=== PATIENT | male | born 1985 | race Caucasian/White ===

== ENCOUNTER 2018-10-12 07:32 | Emergency (ER) | payer SELFPAY ==
[~2018-10-12] VITALS: Ht 180.3 cm; Wt 72.6 kg
[2018-10-12 07:39] VITALS: BP 143/86
== END 2018-10-12 08:44 | disposition home or self-care (01) ==
LOC: ER 07:32
DX: J03.90 Acute tonsillitis, unspecified (principal); F17.210 Nicotine dependence, cigarettes, uncomplicated; F12.10 Cannabis abuse, uncomplicated; F15.10 Other stimulant abuse, uncomplicated; Z59.0 Homelessness

== ENCOUNTER 2018-12-23 08:59 | Emergency (ER) | payer SELFPAY ==
[~2018-12-23] VITALS: Ht 180.3 cm; Wt 57.9 kg
[2018-12-23 09:34] VITALS: BP 124/59
== END 2018-12-23 10:24 | disposition home or self-care (01) ==
LOC: ER 08:59
DX: L84 Corns and callosities (principal); F17.210 Nicotine dependence, cigarettes, uncomplicated; F12.10 Cannabis abuse, uncomplicated; F15.10 Other stimulant abuse, uncomplicated

== ENCOUNTER 2018-12-31 02:16 | Emergency (ER) | payer SELFPAY ==
[~2018-12-31] VITALS: Ht 180.3 cm; Wt 74.4 kg
[2018-12-31] MEDS ORDERED: cefTRIAXone SOD 1,000 MG VL IM ONE (04:30)
[2018-12-31 04:37] VITALS: BP 128/71
== END 2018-12-31 05:24 | disposition home or self-care (01) ==
LOC: ER 02:18
DX: L84 Corns and callosities (principal); Z76.0 Encounter for issue of repeat prescription; F17.210 Nicotine dependence, cigarettes, uncomplicated; F12.10 Cannabis abuse, uncomplicated; F15.10 Other stimulant abuse, uncomplicated
CPT/HCPCS: 96372; 99283; J0696

== ENCOUNTER 2019-01-14 00:32 | Emergency (ER) | payer SELFPAY ==
[~2019-01-14] VITALS: Ht 180.3 cm; Wt 74.8 kg
[2019-01-14 00:45] VITALS: BP 136/70
== END 2019-01-14 03:17 | disposition left against medical advice (07) ==
LOC: ER 00:36
DX: M79.645 Pain in left finger(s) (principal); Z53.21 Procedure and treatment not carried out due to patient leaving prior to being seen by health care provider
CPT/HCPCS: 73130

== ENCOUNTER 2019-01-25 18:28 | Emergency (ER) | payer MEDICAID, OTHER ==
[~2019-01-25] VITALS: Ht 180.3 cm; Wt 74.8 kg
[2019-01-25 18:30] VITALS: BP 144/60
== END 2019-01-25 20:04 | disposition left against medical advice (07) ==
LOC: ER 18:28
DX: R21 Rash and other nonspecific skin eruption (principal); Z53.21 Procedure and treatment not carried out due to patient leaving prior to being seen by health care provider

== ENCOUNTER 2019-01-25 21:07 | Emergency (ER) | payer MEDICAID ==
[~2019-01-25] VITALS: Ht 180.3 cm; Wt 74.8 kg
[2019-01-25] MEDS ORDERED: AZITHROMYCIN 250 MG TAB PO ONE (23:00)
[2019-01-25] MEDS ORDERED: cefTRIAXone SOD 1,000 MG VL IM ONE (23:00)
[2019-01-25 23:04] VITALS: BP 137/74
== END 2019-01-26 03:33 | disposition home or self-care (01) ==
LOC: ER 21:07
DX: Z20.2 Contact with and (suspected) exposure to infections with a predominantly sexual mode of transmission (principal); F17.210 Nicotine dependence, cigarettes, uncomplicated; F12.10 Cannabis abuse, uncomplicated; F15.10 Other stimulant abuse, uncomplicated
CPT/HCPCS: 96372; 99283; J0696

== ENCOUNTER 2019-02-09 00:28 | Emergency (ER) | payer MEDICAID ==
[~2019-02-09] VITALS: Ht 180.3 cm; Wt 74.8 kg
[2019-02-09 00:49] VITALS: BP 137/76
[2019-02-09 01:37] LABS: Basophils # (auto) 0.1 uL; Basophils % (auto) 0.8 % (0.0-2.0); Eosinophils # (auto) 0 uL; Eosinophils % (auto) 0.5 % (0.0-7.0); Hematocrit 43.9 % (41.0-53.0); Hemoglobin 14.8 g/dL (13.5-17.5); Lymphocytes # (auto) 0.8 uL; Lymphocytes % (auto) 11.4 % (10.0-50.0); Mean Corpuscular Hemoglobin 30.4 pg (28.0-32.0); Mean Corpuscular Hgb Conc. 33.7 g/dL (32.0-36.0); Mean Corpuscular Volume 90.2 fL (80.0-100.0); Monocytes # (auto) 0.7 uL; Monocytes % (auto) 9.5 % (0.0-12.0); Neutrophils # (auto) 5.7 uL; Neutrophils % (auto) 77.8 % (37.0-80.0); Platelet Count (auto) 233 10^3/uL (140-450); Red Blood Cells 4.87 10^6/uL (4.5-5.90); Red Cell Distribution Width 13.3 % (11.8-14.3); White Blood Cell 7.3 10^3/uL (4.4-10.8)
[2019-02-09 01:51] LABS: Urine Bacteria FEW /hpf (None Seen); Urine Blood Negative /uL (Negative); Urine Mucus FEW (None Seen); Urine Specific Gravity 1.028 (1.001-1.035); Urine WBC <1 /hpf (0 - 3)
[2019-02-09 02:03] LABS: Albumin 4.1 g/dL (3.4-5.0); BUN/Creatinine Ratio 10.2; Calcium 8.3 mg/dL (8.5-10.1); Potassium 3.4 mmol/L (3.5-5.1)
[2019-02-09 02:06] LABS: Bilirubin, Total 0.5 mg/dL (0.2-1.0)
[2019-02-09 02:58] LABS: Alcohol, Urine < 3.0 mg/dL (0-5); Amphetamine Screen, Urine POSITIVE (NEGATIVE); Barbiturate Scree,Urine NEGATIVE (NEGATIVE); Benzodiazephine Screen, Urine NEGATIVE (NEGATIVE); Cannabinoid Screen, Urine POSITIVE (NEGATIVE); Cocaine Screen, Urine NEGATIVE (NEGATIVE); Opiate Scree,Urine NEGATIVE (NEGATIVE); Phencyclidine Screen, Urine NEGATIVE (NEGATIVE)
[2019-02-09] MEDS ORDERED: diphenhdrAMINE HCL 50 MG/1 ML VL IM ONE (07:00)
== END 2019-02-09 07:16 | disposition home or self-care (01) ==
LOC: ER 00:28
DX: F41.9 Anxiety disorder, unspecified (principal); F15.10 Other stimulant abuse, uncomplicated; F17.210 Nicotine dependence, cigarettes, uncomplicated; F12.90 Cannabis use, unspecified, uncomplicated
CPT/HCPCS: 36415; 80053; 80307; 81001; 85025; 96372; 99284; J1200

== ENCOUNTER 2019-02-18 04:11 | Emergency (ER) | payer MEDICAID ==
[~2019-02-18] VITALS: Ht 180.3 cm; Wt 76.2 kg
[2019-02-18 04:48] VITALS: BP 117/41
== END 2019-02-18 07:46 | disposition left against medical advice (07) ==
LOC: ER 04:11
DX: M79.642 Pain in left hand (principal); M79.641 Pain in right hand; Z53.21 Procedure and treatment not carried out due to patient leaving prior to being seen by health care provider

== ENCOUNTER 2019-02-26 21:27 | Emergency (ER) | payer MEDICAID ==
[~2019-02-26] VITALS: Ht 180.3 cm; Wt 74.8 kg
[2019-02-27 00:09] LABS: Basophils # (auto) 0 uL; Basophils % (auto) 0.2 % (0.0-2.0); Eosinophils # (auto) 0.1 uL; Eosinophils % (auto) 1.2 % (0.0-7.0); Hematocrit 42.1 % (41.0-53.0); Hemoglobin 14.2 g/dL (13.5-17.5); Lymphocytes % (auto) 30.4 % (10.0-50.0); Mean Corpuscular Hemoglobin 30.6 pg (28.0-32.0); Mean Corpuscular Hgb Conc. 33.7 g/dL (32.0-36.0); Mean Corpuscular Volume 90.6 fL (80.0-100.0); Monocytes # (auto) 0.6 uL; Monocytes % (auto) 8.9 % (0.0-12.0); Neutrophils # (auto) 3.9 uL; Neutrophils % (auto) 59.3 % (37.0-80.0); Platelet Count (auto) 272 10^3/uL (140-450); Red Blood Cells 4.64 10^6/uL (4.5-5.90); Red Cell Distribution Width 13.6 % (11.8-14.3); White Blood Cell 6.6 10^3/uL (4.4-10.8)
[2019-02-27 00:19] LABS: Alanine Aminotransferase 37 U/L (16-61); Albumin 3.7 g/dL (3.4-5.0); Anion Gap 9 (5-15); Aspartate Aminotransferase 22 U/L (15-37); BUN/Creatinine Ratio 9.7; Blood Alcohol < 3.0 mg/dL (0-5); Blood Urea Nitrogen 10 mg/dL (7-18); Calcium 8.6 mg/dL (8.5-10.1); Carbon Dioxide 27 mmol/L (21-32); Chloride 106 mmol/L (98-107); GFR African American 108 mL/min; GFR Non-African American 90 mL/min; Glucose 97 mg/dL (74-106); Potassium 3.5 mmol/L (3.5-5.1); Sodium 142 mmol/L (136-145)
[2019-02-27 00:21] LABS: Salicylate < 1.7 mg/dL (2.8-20.0)
[2019-02-27 00:22] LABS: Alkaline Phosphatase 111 U/L (45-117); Bilirubin, Total 0.4 mg/dL (0.2-1.0); Total Protein 7.6 g/dL (6.4-8.2)
[2019-02-27 01:03] LABS: Acetaminophen < 2.0 ug/mL (10-30)
[2019-02-27 05:31] LABS: Urine WBC None Seen /hpf (0 - 3)
[2019-02-27 05:39] LABS: Urine Bacteria NONE SEEN /hpf (None Seen); Urine Blood Negative /uL (Negative); Urine Mucus FEW (None Seen)
[2019-02-27 06:03] LABS: Alcohol, Urine < 3.0 mg/dL (0-5); Amphetamine Screen, Urine POSITIVE (NEGATIVE); Barbiturate Scree,Urine NEGATIVE (NEGATIVE); Benzodiazephine Screen, Urine NEGATIVE (NEGATIVE); Cannabinoid Screen, Urine POSITIVE (NEGATIVE); Cocaine Screen, Urine NEGATIVE (NEGATIVE); Opiate Scree,Urine NEGATIVE (NEGATIVE); Phencyclidine Screen, Urine POSITIVE (NEGATIVE)
[2019-02-27 06:09] VITALS: BP 115/66
== END 2019-02-27 08:43 | disposition left against medical advice (07) ==
LOC: ER 21:31
DX: R44.0 Auditory hallucinations (principal); F41.9 Anxiety disorder, unspecified; F32.9 Major depressive disorder, single episode, unspecified; F19.10 Other psychoactive substance abuse, uncomplicated
CPT/HCPCS: 36415; 80053; 80307; 80320; 80329; 81001; 85025

== ENCOUNTER 2019-02-28 09:18 | Emergency (ER) | payer MEDICAID ==
[~2019-02-28] VITALS: Ht 180.3 cm; Wt 74.8 kg
[2019-02-28 09:56] VITALS: BP 142/74
[2019-02-28] MEDS: IBUPROFEN 600 MG TAB PO ONE (10:13)
== END 2019-02-28 10:26 | disposition home or self-care (01) ==
LOC: ER 09:24
DX: S00.81XA Abrasion of other part of head, initial encounter (principal); F17.210 Nicotine dependence, cigarettes, uncomplicated; F12.10 Cannabis abuse, uncomplicated; F15.10 Other stimulant abuse, uncomplicated; W18.09XA Striking against other object with subsequent fall, initial encounter; Y93.01 Activity, walking, marching and hiking; Y92.89 Other specified places as the place of occurrence of the external cause; Y99.8 Other external cause status

== ENCOUNTER 2019-08-12 19:53 | Emergency (ER) | payer MEDICAID ==
[~2019-08-12] VITALS: Ht 180.3 cm; Wt 71.7 kg
[2019-08-12 20:15] VITALS: BP 128/70
[2019-08-12] MEDS ORDERED: cefTRIAXone SOD 1,000 MG VL IM ONE (21:15)
== END 2019-08-12 21:42 | disposition home or self-care (01) ==
LOC: ER 19:58
DX: L02.414 Cutaneous abscess of left upper limb (principal); F17.210 Nicotine dependence, cigarettes, uncomplicated
CPT/HCPCS: 96372; 99283; J0696

== ENCOUNTER 2019-08-14 16:07 | Emergency (ER) | payer MEDICAID ==
[~2019-08-14] VITALS: Ht 180.3 cm; Wt 71.7 kg
[2019-08-14] MEDS ORDERED: TETANUS-DIPTH-ACEL PERTUSSIS 0.5ML SYRG IM ONE (19:15)
[2019-08-14] MEDS ORDERED: BACITRACIN TOP OINT 1 UD PKG TOP ONE (19:15)
[2019-08-14] MEDS ORDERED: LIDOCAINE 1% HCL (LOCAL ANESTH.) INJ 20ML MDV IJ ONE (19:45)
[2019-08-14 20:50] VITALS: BP 138/76
== END 2019-08-14 21:13 | disposition home or self-care (01) ==
LOC: ER 16:07
DX: S61.411A Laceration without foreign body of right hand, initial encounter (principal); F17.210 Nicotine dependence, cigarettes, uncomplicated; W26.8XXA Contact with other sharp object(s), not elsewhere classified, initial encounter; Y93.89 Activity, other specified; Y92.89 Other specified places as the place of occurrence of the external cause; Y99.8 Other external cause status
CPT/HCPCS: 12002; 90471; 90715; 99283; J2001

== ENCOUNTER 2019-08-26 00:38 | Emergency (ER) | payer MEDICAID ==
[~2019-08-26] VITALS: Ht 180.3 cm; Wt 70.3 kg
[2019-08-26 00:44] VITALS: BP 140/92
[2019-08-26] MEDS ORDERED: BACITRACIN TOP OINT 1 UD PKG TOP ONE ×2 (00:49→01:00)
== END 2019-08-26 00:51 | disposition home or self-care (01) ==
LOC: ER 00:38
DX: S61.411D Laceration without foreign body of right hand, subsequent encounter (principal); F17.210 Nicotine dependence, cigarettes, uncomplicated; X58.XXXD Exposure to other specified factors, subsequent encounter

== ENCOUNTER 2020-01-26 17:21 | Emergency (ER) | payer MEDICAID ==
[~2020-01-26] VITALS: Ht 180.3 cm; Wt 81.6 kg
[2020-01-26] MEDS ORDERED: IBUPROFEN 800 MG TAB PO ONE (20:00)
[2020-01-26] MEDS ORDERED: ACETAMINOPHEN 325 MG TAB PO ONE (20:00)
[2020-01-26 20:59] VITALS: BP 113/66
[2020-01-26 21:02] LABS: Urine Bacteria NONE SEEN /hpf (None Seen); Urine Blood Negative /uL (Negative); Urine Hyaline Cast FEW /lpf (0 - 2); Urine Mucus FEW (None Seen); Urine Specific Gravity 1.025 (1.001-1.035); Urine WBC <1 /hpf (0 - 3)
[2020-01-26 21:27] LABS: Amphetamine Screen, Urine POSITIVE (NEGATIVE); Barbiturate Scree,Urine NEGATIVE (NEGATIVE); Benzodiazephine Screen, Urine NEGATIVE (NEGATIVE); Cannabinoid Screen, Urine POSITIVE (NEGATIVE); Cocaine Screen, Urine NEGATIVE (NEGATIVE); Opiate Scree,Urine NEGATIVE (NEGATIVE); Phencyclidine Screen, Urine NEGATIVE (NEGATIVE)
== END 2020-01-26 21:16 | disposition home or self-care (01) ==
LOC: ER 17:21
DX: R51 Headache (principal); E86.0 Dehydration; F41.9 Anxiety disorder, unspecified; F32.9 Major depressive disorder, single episode, unspecified; F90.9 Attention-deficit hyperactivity disorder, unspecified type
CPT/HCPCS: 80307; 81001

== ENCOUNTER 2020-08-08 18:24 | Emergency (ER) | payer MEDICAID ==
[~2020-08-08] VITALS: Ht 180.3 cm; Wt 82.1 kg
[2020-08-08 19:50] VITALS: BP 142/78
[2020-08-08 19:51] LABS: Urine Bacteria NONE SEEN /hpf (None Seen); Urine Blood Negative /uL (Negative); Urine Mucus FEW (None Seen); Urine Specific Gravity 1.028 (1.001-1.035); Urine WBC <1 /hpf (0 - 3)
[2020-08-08 19:52] LABS: Amphetamine Screen, Urine POSITIVE (NEGATIVE); Barbiturate Scree,Urine NEGATIVE (NEGATIVE); Benzodiazephine Screen, Urine NEGATIVE (NEGATIVE); Cannabinoid Screen, Urine POSITIVE (NEGATIVE); Cocaine Screen, Urine NEGATIVE (NEGATIVE); Phencyclidine Screen, Urine POSITIVE (NEGATIVE)
[2020-08-08 19:59] LABS: Opiate Scree,Urine NEGATIVE (NEGATIVE)
[2020-08-08] MEDS ORDERED: AZITHROMYCIN 250 MG TAB PO ONE (20:15)
[2020-08-08] MEDS ORDERED: cefTRIAXone SODIUM 250 MG VL IM ONE (20:15)
== END 2020-08-08 20:46 | disposition home or self-care (01) ==
LOC: ER 18:24
DX: F15.10 Other stimulant abuse, uncomplicated (principal); F12.10 Cannabis abuse, uncomplicated; F17.210 Nicotine dependence, cigarettes, uncomplicated; Z20.2 Contact with and (suspected) exposure to infections with a predominantly sexual mode of transmission
CPT/HCPCS: 80307; 81001; 96372; 99283; J0696

== ENCOUNTER 2020-10-25 13:31 | Emergency (ER) | payer MEDICAID ==
[~2020-10-25] VITALS: Ht 180.3 cm; Wt 82.1 kg
[2020-10-25 13:33] VITALS: BP 140/86
== END 2020-10-25 14:29 | disposition home or self-care (01) ==
LOC: ER 13:31
DX: J30.9 Allergic rhinitis, unspecified (principal); F17.210 Nicotine dependence, cigarettes, uncomplicated; F12.10 Cannabis abuse, uncomplicated; F15.10 Other stimulant abuse, uncomplicated; F41.9 Anxiety disorder, unspecified; F32.9 Major depressive disorder, single episode, unspecified

== ENCOUNTER → 2022-02-25 | Emergency (ER) | payer SELFPAY | END | disposition left against medical advice (07) | LOC: ER 12:53 | DX: R50.9 Fever, unspecified (principal); R05.9 Cough, unspecified; Z53.21 Procedure and treatment not carried out due to patient leaving prior to being seen by health care provider ==

== ENCOUNTER 2022-03-05 07:05 | Emergency (ER) | payer SELFPAY ==
[~2022-03-05] VITALS: Ht 180.3 cm; Wt 79.4 kg
[2022-03-05 07:33] VITALS: BP 122/70
[2022-03-05] MEDS ORDERED: IBUP800T27 PO (08:03)
[2022-03-05] MEDS ORDERED: IBUPROFEN 800 MG TAB PO ONE (08:15)
== END 2022-03-05 08:30 | disposition home or self-care (01) ==
LOC: ER 07:05
DX: S93.602A Unspecified sprain of left foot, initial encounter (principal); F17.210 Nicotine dependence, cigarettes, uncomplicated; F12.10 Cannabis abuse, uncomplicated; F15.10 Other stimulant abuse, uncomplicated; W22.8XXA Striking against or struck by other objects, initial encounter; Y93.89 Activity, other specified; Y92.89 Other specified places as the place of occurrence of the external cause; Y99.8 Other external cause status
CPT/HCPCS: 73630

== ENCOUNTER 2022-11-06 04:28 | Emergency (ER) | payer MEDICAID ==
[~2022-11-06] VITALS: Ht 180.3 cm; Wt 77.0 kg
[~2022-11-06 04:28] MED LIST: IBUP800T27 PO
[2022-11-06 06:31] LABS: Basophils # (auto) 0 10 ^3/uL (0-0.2); Basophils % (auto) 0.4 % (0.0-2.0); Eosinophils # (auto) 0 10 ^3/uL (0-0.8); Eosinophils % (auto) 0.1 % (0.0-7.0); Hematocrit 41.1 % (41.0-53.0); Hemoglobin 13.9 g/dL (13.5-17.5); Lymphocytes # (auto) 0.9 10 ^3/uL (0.4-5.4); Mean Corpuscular Hemoglobin 29.5 pg (28.0-32.0); Mean Corpuscular Hgb Conc. 33.9 g/dL (32.0-36.0); Mean Corpuscular Volume 87.1 fL (80.0-100.0); Monocytes # (auto) 0.8 10 ^3/uL (0-1.3); Monocytes % (auto) 16.7 % (0.0-12.0); Neutrophils % (auto) 63.8 % (37.0-80.0); Red Blood Cells 4.72 10^6/uL (4.5-5.90); Red Cell Distribution Width 13.4 % (11.8-14.3); White Blood Cell 4.8 10^3/uL (4.4-10.8)
[2022-11-06 06:39] LABS: Potassium 4.1 mmol/L (3.5-5.1)
[2022-11-06 06:51] LABS: Albumin 3.5 g/dL (3.4-5.0); BUN/Creatinine Ratio 15.9; Calcium 8.8 mg/dL (8.5-10.1)
[2022-11-06 06:54] LABS: Bilirubin, Total 0.3 mg/dL (0.2-1.0); Total Protein 7.4 g/dL (6.4-8.2)
[2022-11-06 07:50] LABS: Urine Bacteria NONE SEEN /hpf (None Seen); Urine Blood Negative /uL (Negative); Urine Specific Gravity 1.019 (1.001-1.035); Urine WBC 1 /hpf (0 - 3)
[2022-11-06] MEDS ORDERED: ONDA-144 PO (07:58)
[2022-11-06 08:10] LABS: Alcohol, Urine < 3.0 mg/dL (0-10); Amphetamine Screen, Urine POSITIVE (NEGATIVE); Barbiturate Scree,Urine NEGATIVE (NEGATIVE); Benzodiazephine Screen, Urine NEGATIVE (NEGATIVE); Cannabinoid Screen, Urine POSITIVE (NEGATIVE); Cocaine Screen, Urine NEGATIVE (NEGATIVE); Opiate Scree,Urine NEGATIVE (NEGATIVE); Phencyclidine Screen, Urine NEGATIVE (NEGATIVE)
[2022-11-06 09:26] VITALS: BP 132/80
== END 2022-11-06 09:26 | disposition home or self-care (01) ==
LOC: ER 04:28
DX: K52.9 Noninfective gastroenteritis and colitis, unspecified (principal); F17.210 Nicotine dependence, cigarettes, uncomplicated; Z79.1 Long term (current) use of non-steroidal anti-inflammatories (NSAID); Z79.899 Other long term (current) drug therapy
CPT/HCPCS: 36415; 74176; 80053; 80307; 81001; 83690; 85025

== ENCOUNTER 2023-02-11 00:27 | Emergency (ER) | payer SELFPAY ==
[~2023-02-11] VITALS: Ht 180.3 cm; Wt 72.4 kg
[~2023-02-11 00:27] MED LIST changes: +IBUP-1456 PO; -IBUP800T27 PO; +ONDA-144 PO
[2023-02-11 01:06] VITALS: BP 115/81
[2023-02-11] MEDS ORDERED: SULF400T11 PO (01:20)
== END 2023-02-11 02:16 | disposition home or self-care (01) ==
LOC: ER 00:27
DX: L02.413 Cutaneous abscess of right upper limb (principal); F17.210 Nicotine dependence, cigarettes, uncomplicated; Z79.899 Other long term (current) drug therapy
CPT/HCPCS: 10060

== ENCOUNTER 2023-04-10 23:28 | Emergency (ER) | payer SELFPAY ==
[~2023-04-10] VITALS: Ht 180.3 cm; Wt 76.4 kg
[~2023-04-10 23:28] MED LIST changes: +SULF400T11 PO
[2023-04-11] MEDS ORDERED: BACDST PO (02:08)
[2023-04-11] MEDS ORDERED: CLIN300C70 PO (02:08)
[2023-04-11] MEDS ORDERED: MUPI2OIN2 EX (02:08)
[2023-04-11] MEDS ORDERED: SULFAMETHOX W/TRIMETH(800/160MG) DS TAB PO ONE (02:15)
[2023-04-11] MEDS ORDERED: CLINDAMYCIN HCL 150 MG CAP PO ONE (02:15)
[2023-04-11 02:52] VITALS: BP 142/79; PULSE 92; RESP 18; TEMP 98.7; O2SAT 98
== END 2023-04-11 02:52 | disposition home or self-care (01) ==
LOC: ER 23:30
DX: L03.211 Cellulitis of face (principal); J34.0 Abscess, furuncle and carbuncle of nose; K04.7 Periapical abscess without sinus; K02.9 Dental caries, unspecified; F17.210 Nicotine dependence, cigarettes, uncomplicated; Z79.899 Other long term (current) drug therapy

== ENCOUNTER 2024-04-22 02:47 | Emergency (ER) | payer SELFPAY ==
[~2024-04-22] VITALS: Ht 180.3 cm; Wt 74.5 kg
[~2024-04-22 02:47] MED LIST changes: +BACDST PO; +CLIN1CAP70 PO; +MUPI2OIN2 EX
[2024-04-22 03:05] VITALS: BP 138/93; PULSE 85; RESP 20; O2SAT 97
== END 2024-04-22 04:58 | disposition left against medical advice (07) ==
LOC: ER 02:47
DX: S60.562A Insect bite (nonvenomous) of left hand, initial encounter (principal); Z53.21 Procedure and treatment not carried out due to patient leaving prior to being seen by health care provider; W57.XXXA Bitten or stung by nonvenomous insect and other nonvenomous arthropods, initial encounter; Y93.89 Activity, other specified; Y92.89 Other specified places as the place of occurrence of the external cause; Y99.8 Other external cause status

== ENCOUNTER 2025-01-30 13:20 | Emergency (ER) | payer SELFPAY ==
[~2025-01-30] VITALS: Ht 180.3 cm; Wt 77.2 kg
[2025-01-30 13:35] VITALS: BP 121/64; PULSE 99; RESP 16; TEMP 98.8; O2SAT 97
--- NOTE | 2025-01-30 14:14 | ED.PDOC ---
History of Present Illness(SKN HPI Comments 39y F who presents to the ED for chief complaint of R arm swelling. Pt states he is IV drug user(Meth) and has noted R forearm swelling, redness and edema. Pt upon questioning of past medical history, got upset and left. Pt was followed and told he possibly could lose his R arm and came back to the ED. Pt states he is not up to date on tetanus. Pt otherwise denies any other symptoms including shortness of breath, fever, cough, chills, or any associated symptoms. Chief Complaint: Upper Extremity Time Seen by MD: 14:10 Primary Care Provider: NONE History of Present Illness: Medications, Allergies Allergies: Coded Allergies: NO KNOWN ALLERGIES (Unverified , 10/18/15) Home Meds Active Scripts Mupirocin (Pseudomonas Fluores (Mupirocin) 2 % Oin, 1 APPLIC EX TID for 10 Days, #1 OIN each nostrils Prov:HAIDER BARNESA Q [place] 04/11/23 Sulfamethoxazole W/Trimethopri (Bactrim Ds Tablet) 1 Tab Tb, 1 TAB PO BID for 10 Days, #20 TAB Prov:HAIDER BARNESA Q [place] 04/11/23 Clindamycin Hcl (Clindamycin Hcl) 300 Mg Cap, 1 CAP PO QID for 10 Days, #40 CAP Prov:HAIDER BARNESA Q [place] 04/11/23 Sulfamethoxazole-Trimethoprim (Bactrim) 1 Tab Tab, 1 TAB PO BID for 7 Days, #14 TAB 0 Refills Prov:OLVIN SEVERINO 02/11/23 Ondansetron (Zofran) 4 Mg Tab, 4 MG PO DAILY for 7 Days, #7 MG Prov:TIM GUERRA MD 11/06/22 Ibuprofen (Ibuprofen) 800 Mg Tab, 800 MG PO TID PRN, #30 TAB Prov:IZZY HERRERA 03/05/22 Information Source: Patient Mode of Arrival: Ambulatory Brought in by: self Severity: Moderate Timing: Came on: Gradually Duration: Since onset Prehospital treatment: None Location: Arm Mechanism: Preceding Wound Object: Needle Retained Foreign Body: No Wound Type: Abrasion Immunization Status of Animal: Unknown Tetanus: Unknown History of: None Associated Signs and Symptoms: Redness, Swelling Past Medical History PAST MEDICAL HISTORY: HTN Surgical History: Denies all surgeries Family History Family History: Reviewed,noncontributory to illness Social History Smoker: Cigarettes, Less Than 1 Pack/Day Alcohol: Occasionally Drugs: Marijuana, Methamphetamine Lives In: Home Constitutional: denies: chills, diaphoresis, fatigue, fever, malaise, sweats, weakness, others EENTM: denies: blurred vision, double vision, ear bleeding, ear discharge, ear drainage, ear pain, ear ringing, eye pain, eye redness, hearing loss, mouth pain, mouth swelling, nasal discharge, nose bleeding, nose congestion, nose pain, photophobia, tearing, throat pain, throat swelling, voice changes, others Respiratory: denies: cough, hemoptysis, orthopnea, SOB at rest, shortness of breath, SOB with excertion, stridor, wheezing, others Cardiovascular: denies: chest pain, dizzy spells, diaphoresis, Dyspnea on exertion, edema, irregular heart beat, left arm pain, lightheadedness, palp itations, PND, syncope, others Gastrointestinal: denies: abdomen distended, abdominal pain, blood streaked bowels, constipated, diarrhea, dysphagia, difficulty swallowing, hematemesis, melena, nausea, poor appetite, poor fluid intake, rectal bleeding, rectal pain, vomiting, others Genitourinary: denies: burning, dysuria, flank pain, frequency, hematuria, incontinence, penile discharge, penile sore, pain, testicle pain, testicle swelling, urgency, others Neurological: denies: dizziness, fainting, headache, left sided numbness, left sided weakness, numbness, paresthesia, pre-existing deficit, right sided numbness, right sided weakness, seizure, speech problems, tingling, tremors, weakness, others Musculoskeletal: denies: back pain, gout, joint pain, joint swelling, muscle pain, muscle stiffness, neck pain, others Integumetry: reports: change in color (R arm); denies: bruises, change in hair/nails, dryness, laceration, lesions, lumps, rash, wounds, others Allergic/Immunocompromised: denies: Difficulty Healing, Frequent Infections, Hives, Itching, others Hematologic/Lymphatic: denies: anemia, blood clots, easy bleeding, easy bruising, swollen glands, others Endocrine: denies: excessive hunger, excessive sweating, excessive thirst, excessive urination, flushing, intolerance to cold, intolerance to heat, unexplained weight gain, unexplained weight loss, others Psychiatric: denies: anxiety, bipolar disorder, depression, hopeless, panic disorder, schizophrenia, sleepless, suicidal, others All Other Systems: Reviewed and Negative Physical Exam General Appearance: No Apparent Distress HEENT: Normal ENT Inspection, Pharynx Normal, TMs Normal Neck: Full Range of Motion, Non-Tender, Normal, Normal Inspection Respiratory: Chest Non-Tender, Lungs Clear, No Accessory Muscle Use, No Respiratory Distress, Normal Breath Sounds Cardiovascular: No Edema, No JVD, No Murmur, No Gallop, Normal Peripheral Pulses, Regular Rate/Rhythm Breast Exam: Deferred Gastrointestinal: No Organomegaly, Non Tender, No Pulsatile Mass, Normal Bowel Sounds, Soft Genitalia: Deferred Pelvic: Deferred Rectal: Deferred Extremities: No calf tenderness, Normal capillary refill, Normal inspection, Normal range of motion, Non-tender, No pedal edema Musculoskeletal : Apperance: Normal Neurologic: Alert, occupational health nursing director II-XII nml as Tested, No Motor Deficits, No Sensory Deficits, Other (The patient also seems to be responding to internal stimuli) Cerebellar Function: Normal Reflexes: Normal Skin: Dry, Normal Color, Rash (Redness and swelling to the right upper extremity with areas what seems to be injection sites), Warm Lymphatic: No Adenopathy Was a procedure done? Was a procedure done?: No Differential Diagnosis (INTG) Differential Diagnosis: N/A Differential Diagnosis: Contact Dermatitis Abscess: Abscess, Bacteremia, Cellulitis, Erysipelas Differential Diagnosis: Cellulitis, Osteomyelitis, Puncture Wound X-Ray, Labs, Meds, VS Vital Signs Date Time Temp Pulse Resp B/P (MAP) Pulse Ox O2 Delivery O2 Flow Rate FiO2 01/30/25 13:35 98.8 99 16 121/64 (83) 97 98.8 The patient initially left the emergency department's and we had to talk to the patient to tell him to come back in so we can treat him. The patient has now eloped from the department's again. Time of 1ST Reevaluation: 14:40 Reevaluation 1ST: Unchanged Patient Education/Counseling: Diagnosis, Treatment, Prognosis Family Education/Counseling: No Family Present Departure 1 Departure Time of Disposition: 14:59 Impression: Primary Impression: Right arm cellulitis Additional Impression: Methamphetamine abuse Disposition: HOME / SELF CARE / HOMELESS Condition: Fair Discharged With: Self Critical Care Note Critical Care Time?: No Stability Stability form required: No Heart Score Heart Score: Heart Score Response (Comments) Value History N/A 0 EKG N/A 0 Age N/A 0 Risk Factors N/A 0 Troponin N/A 0 Total 0 I personally scribed for FEI SHANNON MD ([email or web address]) on 01/30/25 at 14:14. Electronically submitted by Patricia Szymanski ([email or web address]). FEI SHANNON MD Jan 30, 2025 14:14
[2025-01-30] MEDS ORDERED: SODIUM CHLORIDE 0.9% 1,000 ML IV ONE (14:30)
[2025-01-30] MEDS ORDERED: VANCOMYCIN 1GM/200ML PM 200 ML IV ONE (14:30)
== END 2025-01-30 14:46 | disposition left against medical advice (07) ==
LOC: ER 13:20
DX: L03.113 Cellulitis of right upper limb (principal); F15.10 Other stimulant abuse, uncomplicated; I10 Essential (primary) hypertension; F17.210 Nicotine dependence, cigarettes, uncomplicated